=== PATIENT | male | born 1935 | race Caucasian/White ===

== ENCOUNTER 2018-03-10 19:04 | Emergency (ER) | payer MEDICARE, OTHER, MEDICAID ==
[~2018-03-10] VITALS: Ht 193 cm; Wt 95.3 kg
[~2018-03-10 19:04] MED LIST: Aggrenox; CALC-250 PO; DNPZ10T; DOCU50LI PO; DXCC100C PO; GLMP4T; HYOS0.1283 SL; INSN1U SQ; INSU100V5 SQ; IRON18TA PO; MAG30ORA2 PO; MAGN400O7 PO; MEMA10TA; MTF500T; NFMET1000; OMG1KC; PARO10TA21; POLY119P5 PO; PREG150C; SAW1CAPS PO; SERT50TA9 PO; SIME40DR51 PO; SIMV40TA2; TRAM50TA2 PO
[2018-03-10] MEDS ORDERED: ACETAMINOPHEN 500 MG TAB (TYLENOL) PO STA (19:11)
[2018-03-10] MEDS ORDERED: NS IV 1000 ML 1,000 ML IV ONE (19:11)
[2018-03-10 19:21] LABS: BASOPHILS % (AUTO) 0 % (0-10); EOSINOPHILS % (AUTO) 0 % (0-10); HEMATOCRIT 45 % (40-54); HEMOGLOBIN 14.6 G/DL (13.3-17.7); LYMPHOCYTES # (AUTO) 0.9 X 10^3 (1.0-4.0); LYMPHOCYTES % (AUTO) 9 % (12-44); MEAN CORPUSCULAR HEMOGLOBIN 29 PG (25-34); MEAN CORPUSCULAR HGB CONC 33 G/DL (32-36); MEAN CORPUSCULAR VOLUME 89 FL (80-99); MEAN PLATELET VOLUME 10.8 FL (7.4-10.4); MONOCYTES # (AUTO) 0.8 X 10^3 (0.0-1.0); MONOCYTES % (AUTO) 7 % (0-12); NEUTROPHILS # (AUTO) 9.1 X 10^3 (1.8-7.8); NEUTROPHILS % (AUTO) 84 % (42-75); PLATELET COUNT 167 10^3/uL (130-400); RED BLOOD COUNT 5.06 10^6/uL (4.35-5.85); RED CELL DISTRIBUTION WIDTH 14.5 % (10.0-14.5); WHITE BLOOD COUNT 10.8 10^3/uL (4.3-11.0)
--- NOTE | 2018-03-10 19:28 | ED General ---
General Stated Complaint: LETHARGIC Source of Information: EMS, Assisted Records Exam Limitations: Other (PT WITH DEMENTIA AND HAS HAD PRIOR CVA AND IS MINIMALLY VERBAL AND HAS CONFUSED SPEECH NORMALLY, ) History of Present Illness Date Seen by Provider: Mar 10, 2018 Time Seen by Provider: 19:06 Initial Comments PT ARRIVES VIA EMS FROM [facility]. EMS REPORT THAT THEY WERE CALLED BECAUSE PT HAS BEEN LETHARGIC, HIS FACE IS "DROOPING" ( EMS DID NOT APPRECIATE THAT, AND NO EVIDENCE OF FACIAL DROOP ON ARRIVAL TO ER ) AND HIS "VOICE HAD CHANGED" ( AGAIN PT IS ESSENTIALLY NON-VERBAL /MINIMALLY VERBAL AND SPEECH IS CONFUSED, NORMALLY) PT HAS HISTORY OF DEMENTIA, PRIOR CVA/INTRACRANIAL HEMORRHAGE WITH RIGHT SIDE PARALYSIS, DYSPHAGIA, APHASIA. EMS NOTED FEVER OF 100 ON THEIR ASSESSMENT. EMS NOTED O2 SAT OF 90-92% ON ROOM AIR--UP TO MID 90'S ON 2L/NC WAS REPORTED TO EMS BY [facility] STAFF THAT PT CAN NORMALLY POINT TO PEOPLE, BUT HAS NOT BEEN DOING THAT IS UNCLEAR WHEN THESE SYMPTOMS BEGAN. 1943--GRAND DAUGHTER NOW IN ROOM, STATES NORMALLY HE IS MORE ANIMATED AND MORE CONVERSIVE--SHE STATES HE APPEARS VERY TIRED, AND STATES NORMALLY HE HAS A RIGHT SIDED FACIAL DROOP BUT APPEARS MORE DROOPY THAN USUAL DAUGHTER STATES THAT LATELY HE HAS BEEN "CHEEKING" HIS FOOD AND THEY HAVE BEEN WORKING ON THIS ISSUE AT THE [facility]. SHE REPORTS THAT HE DOES HAVE UTI'S ON OCCASION PT IS DNR/DNI PCP: DR. LION Allergies and Home Medications Allergies Coded Allergies: No Known Drug Allergies (Verified , 07/12/07) Home Medications Cefdinir 300 Mg Capsule, 300 MG PO BID Prescribed by: KYLER ARROYO on 03/10/18 2044 Hyoscyamine Sulfate 0.125 Mg Tab.subl, 1-2 TAB SL Q4H Prescribed by: KYLER ARROYO on 02/16/15 1129 Mag Hydrox/Al Hydrox/Simeth 30 Ml Oral.susp, Unknown Dose PO QID PRN for INDIGESTION, (Reported) Polyethylene Glycol 3350 119 Gm Powder, 17 GM PO BID PRN for CONSTIPATION Prescribed by: JAYASHREE DICKERSON on 01/07/15 2225 Tramadol HCl 50 Mg Tablet, 1 TAB PO TID PRN for PAIN, (Reported) Patient Home Medication List Home Medication List Reviewed: Yes Review of Systems Review of Systems Constitutional: see HPI, weakness EENTM: see HPI Respiratory: no symptoms reported; No cough, No short of breath Cardiovascular: no symptoms reported Gastrointestinal: no symptoms reported Genitourinary: no symptoms reported Musculoskeletal: no symptoms reported Skin: no symptoms reported Psychiatric/Neurological: Pre-Existing Deficit (RIGHT SIDE PARALYSIS WITH RIGHT FACIAL DROOP, APHASIA AND DYSPHAGIA), Weakness (GENERALIZED WEAKNESS) Hematologic/Lymphatic: No Symptoms Reported Immunological/Allergic: no symptoms reported Past Lbarped-Bsionr-Ededkk Hx Patient Social History Recent Foreign Travel: No Contact w/Someone Who Travel: No Seasonal Allergies Seasonal Allergies: No Past Medical History Tonsillectomy High Cholesterol, Hypertension Dementia, Neuropathy, Stroke Reproductive Disorders: No Sexually Transmitted Disease: No Chronic Constipation Diabetes, Insulin dep Anxiety, Depression Adverse Reaction/Blood Tranf: No Physical Exam Vital Signs Vital Signs - First Documented 03/10/18 03/10/18 19:10 21:24 Temp 99.2 Pulse 83 Resp 19 B/P (MAP) 139/101 (114) Pulse Ox 98 O2 Delivery Nasal Cannula O2 Flow Rate 2.00 FiO2 96 Capillary Refill : Height, Weight, BMI Height: 6'10" Weight: 200lbs. oz. [id number]; BMI Method:Estimated General Appearance: Other (PT SAYING " OW" AND "GOD DAMN" ON IV STICKS AND CATHETER INSERTION AND SPEECH IS NOT SLURRED. PT SLIGHTLY LETHARGIC. ) HEENT: PERRL/EOMI, Other (MILD RIGHT FACIAL DROOP) Neck: Non Tender Respiratory: Normal Breath Sounds Cardiovascular: Regular Rate, Rhythm, No Edema Neurologic/Psychiatric: Alert (BUT SLIGHTLY LETHARGIC. ), Other (RIGHT SIDED PARALYSIS) Skin: Normal Color, Warm/Dry Focused Exam Lactate Level 03/10/18 19:11: Lactic Acid Level 2.50*H 03/10/18 21:20: Lactic Acid Level 2.00 Lactic Acid Level Progress/Results/Core Measures Suspected Sepsis SIRS Temperature: Pulse: Respiratory Rate: Laboratory Tests 03/10/18 19:11: White Blood Count 10.8 Blood Pressure / Mean: 03/10/18 19:11: Lactic Acid Level 2.50*H 03/10/18 21:20: Lactic Acid Level 2.00 Laboratory Tests 03/10/18 19:11: Creatinine 1.22, INR Comment 1.0, Platelet Count 167, Total Bilirubin 0.7 Results/Orders Lab Results Laboratory Tests Test 03/10/18 19:11 03/10/18 19:18 03/10/18 19:30 03/10/18 21:20 Range/Units White Blood Count 10.8 4.3-11.0 10^3/uL Red Blood Count 5.06 4.35-5.85 10^6/uL Hemoglobin 14.6 13.3-17.7 G/DL Hematocrit 45 40-54 % Mean Corpuscular Volume 89 80-99 FL Mean Corpuscular Hemoglobin 29 25-34 PG Mean Corpuscular Hemoglobin Concent 33 32-36 G/DL Red Cell Distribution Width 14.5 10.0-14.5 % Platelet Count 167 130-400 10^3/uL Mean Platelet Volume 10.8 H 7.4-10.4 FL Neutrophils (%) (Auto) 84 H 42-75 % Lymphocytes (%) (Auto) 9 L 12-44 % Monocytes (%) (Auto) 7 0-12 % Eosinophils (%) (Auto) 0 0-10 % Basophils (%) (Auto) 0 0-10 % Neutrophils # (Auto) 9.1 H 1.8-7.8 X 10^3 Lymphocytes # (Auto) 0.9 L 1.0-4.0 X 10^3 Monocytes # (Auto) 0.8 0.0-1.0 X 10^3 Eosinophils # (Auto) 0.0 0.0-0.3 10^3/uL Basophils # (Auto) 0.0 0.0-0.1 10^3/uL Prothrombin Time 13.0 12.2-14.7 SEC INR Comment 1.0 0.8-1.4 Activated Partial Thromboplast Time 30 24-35 SEC Sodium Level 141 135-145 MMOL/L Potassium Level 3.8 3.6-5.0 MMOL/L Chloride Level 100 98-107 MMOL/L Carbon Dioxide Level 30 21-32 MMOL/L Anion Gap 11 5-14 MMOL/L Blood Urea Nitrogen 20 H 7-18 MG/DL Creatinine 1.22 0.60-1.30 MG/DL Estimat Glomerular Filtration Rate 57 BUN/Creatinine Ratio 16 Glucose Level 213 H 70-105 MG/DL Lactic Acid Level 2.50 *H 2.00 0.50-2.00 MMOL/L Calcium Level 9.7 8.5-10.1 MG/DL Corrected Calcium 9.7 8.5-10.1 MG/DL Magnesium Level 2.1 1.8-2.4 MG/DL Total Bilirubin 0.7 0.1-1.0 MG/DL Aspartate Amino Transf (AST/SGOT) 12 5-34 U/L Alanine Aminotransferase (ALT/SGPT) 19 0-55 U/L Alkaline Phosphatase 64 40-136 U/L Troponin I < 0.30 <0.30 NG/ML B-Type Natriuretic Peptide 20.3 <100.0 PG/ML Total Protein 7.0 6.4-8.2 GM/DL Albumin 4.0 3.2-4.5 GM/DL Amylase Level 50 25-125 U/L Glucometer 213 H 70-110 MG/DL Urine Color YELLOW Urine Clarity SLIGHTLY CLOUDY Urine pH 5 5-9 Urine Specific Casey 1.025 H 1.016-1.022 Urine Protein 1+ H NEGATIVE Urine Glucose (UA) 2+ H NEGATIVE Urine Ketones 1+ H NEGATIVE Urine Nitrite NEGATIVE NEGATIVE Urine Bilirubin NEGATIVE NEGATIVE Urine Urobilinogen NORMAL NORMAL MG/DL Urine Leukocyte Esterase 1+ H NEGATIVE Urine RBC (Auto) 2+ H NEGATIVE Urine RBC 5-10 H /HPF Urine WBC 0-2 /HPF Urine Squamous Epithelial Cells 0-2 /HPF Urine Crystals NONE /LPF Urine Bacteria NONE /HPF Urine Casts NONE /LPF Urine Mucus NEGATIVE /LPF Urine Culture Indicated NO Micro Results Microbiology 03/10/18 Influenza Types A,B Antigen (CARIDAD) - Final, Complete My Orders Orders - KYLER ARROYO DO Accucheck Stat ONCE (03/10/18 19:11) Saline Lock/Iv-Start (03/10/18 19:11) Ekg Tracing (03/10/18 19:11) Catheter(Urinary) Insert & Ass 03,15 (03/10/18 19:11) O2 (03/10/18 19:11) Monitor-Rhythm Ecg Trace Only (03/10/18 19:11) Amylase (03/10/18 19:11) BNP (03/10/18 19:11) Cbc With Automated Diff (03/10/18 19:11) Comprehensive Metabolic Panel (03/10/18 19:11) Lactic Acid Analyzer (03/10/18 19:11) Magnesium (03/10/18 19:11) Protime With Inr (03/10/18 19:11) Partial Thromboplastin Time (03/10/18 19:11) Troponin I (03/10/18 19:11) Ua Culture If Indicated (03/10/18 19:11) Blood Culture (03/10/18 19:11) Influenza A And B Antigens (03/10/18 19:11) Chest 1 View, Ap/Pa Only (03/10/18 19:11) Saline Lock/Iv-Start (03/10/18 19:11) Ns Iv 1000 Ml (Sodium Chloride 0.9%) (03/10/18 19:11) Acetaminophen Tablet (Tylenol Tablet) (03/10/18 19:11) Ct Head Wo-R/O Stroke (03/10/18 19:48) Ceftriaxone For Iv Use (Rocephin For I (03/10/18 20:45) Rx-Oseltamivir Caps (Rx-Tamiflu Caps) (03/10/18 21:11) Medications Given in ED Current Medications Medications Dose Ordered Sig/Syl Route Start Time Stop Time Status Last Admin Dose Admin Ceftriaxone Sodium 1000 mg/ Sodium Chloride 60 ml @ 100 mls/hr ONCE ONCE IV 03/10/18 20:45 03/10/18 21:20 DC 03/10/18 21:15 100 MLS/HR Sodium Chloride 1,000 ml @ 0 mls/hr Q0M ONCE IV 03/10/18 19:11 03/10/18 19:15 DC 03/10/18 19:37 999 MLS/HR Vital Signs/I&O 03/10/18 03/10/18 03/10/18 03/10/18 19:10 19:10 19:37 20:30 Temp 99.2 99.2 98.9 Pulse 83 83 Resp 19 19 B/P (MAP) 139/101 (114) 123/89 O2 Delivery Nasal Cannula Nasal Cannula O2 Flow Rate 2.00 2.00 FiO2 96 03/10/18 21:24 Temp 98.9 Pulse 83 Resp 19 B/P (MAP) 129/72 (91) Pulse Ox 98 O2 Delivery Nasal Cannula O2 Flow Rate 2.00 Capillary Refill : Progress Note : Progress Note 1944--WHEN GRAND DAUGHTER ARRIVES IN ROOM, PT IS FOLLOWING SOME COMMANDS AND ANSWERING YES/NO QUESTIONS SEEMINGLY APPROPRIATELY-MOSTLY BY NODDING OR SHAKING HEAD YES/NO. AFTER FLUIDS, PT IS MORE ANIMATED, LESS LETHARGIC AND IS ANSWERING QUESTIONS WITH YES/NO INSTEAD OF NODDING OR SHAKING HEAD YES/NO. PT FOLLOWING COMMANDS BETTER. DURING PT'S ER STAY, ANOTHER RESIDENT FROM SAME [facility] HAS JUST TESTED + FOR INFLUENZA B--WILL TREAT PT PROPHYLACTICALLY WITH TAMIFLU AT DISMISSAL, [facility] STAFF NOW REPORT THAT THERE ARE ALREADY A COUPLE OF OTHER RESIDENTS THERE THAT HAVE INFLUENZA. ( DID NOT MENTION THIS TO EMS OR PRIOR TO PT'S ARRIVAL ) PT DID HAVE GROSS HEMATURIA AFTER LUCIA PLACEMENT BY RN, AND WAS REPORTED THAT NURSE DID HAVE SOME DIFFICULTY WITH PLACEMENT, BUT THEN HAD RETURN OF CLEAR URINE INITIALLY, THEN WOULD NOT DRAIN, THEN LATER WHEN CATHETER WAS REPOSITIONED AND HAD RETURN OF A LARGE AMOUNT OF CLEAR URINE, THEN LATER , PT WAS NOTED TO HAVE GROSS HEMATURIA, FOLLOWED BY CLEARING OF URINE. CATHETER WAS IRRIGATED WITH GOOD RETURN OF CLEARING URINE. ECG Initial ECG Impression Date: Mar 10, 2018 Initial ECG Impression Time: 19:14 Initial ECG Rate: 87 Initial ECG Rhythm: Normal Sinus Initial ECG Impression: Normal Departure Impression Primary Impression: EXPOSURE TO INFLUENZA B Additional Impressions: Dehydration UTI (urinary tract infection) Generalized weakness HX OF CVA WITH RIGHT SIDED WEAKNESS, APHASIA AND DYSPHAGIA Dementia IDDM (insulin dependent diabetes mellitus) Febrile illness Disposition: 03 XFER SNF Condition: Improved Departure-Patient Inst. Referrals: YVES LION MD Patient Instructions: Dehydration, Adult (DC), Flu, Adult (DC), Urinary Tract Infection, Adult (DC) Add. Discharge Instructions: TAKE TAMIFLU 75 MG TWICE A DAY X 5 DAYS ENCOURAGE FLUIDS TYLENOL NEEDED FOR PAIN OR FEVER CONTINUE YOUR CURRENT MEDICATIONS PRESCRIBED FOLLOW UP WITH DR. LION IN 2-3 DAYS FOR FURTHER CARE, RETURN TO ER IF WORSE Scripts Cefdinir (Cefdinir) 300 Mg Capsule 300 MG PO BID for FOR INFECTION, #20 CAP Prov: KYLER ARROYO DO 03/10/18 KYLER ARROYO DO Mar 10, 2018 19:28
[2018-03-10 19:40] LABS: BILIRUBIN,URINE NEGATIVE (NEGATIVE); CLARITY,URINE SLIGHTLY CLOUDY; COLOR,URINE YELLOW; GLUCOSE, URINE (UA) 2+ (NEGATIVE); KETONES,URINE 1+ (NEGATIVE); LEUKOCYTE ESTERASE ,URINE 1+ (NEGATIVE); NITRITE,URINE NEGATIVE (NEGATIVE); PH,URINE 5 (5-9); PROTEIN,URINE 1+ (NEGATIVE); UROBILINOGEN,URINE NORMAL (NORMAL)
[2018-03-10 19:41] LABS: ALANINE AMINOTRANSFERASE 19 U/L (0-55); ALKALINE PHOSPHATASE 64 U/L (40-136); AMYLASE 50 U/L (25-125); BILIRUBIN,TOTAL 0.7 MG/DL (0.1-1.0); BUN/CREATININE RATIO 16; CALCIUM 9.7 MG/DL (8.5-10.1); CARBON DIOXIDE 30 MMOL/L (21-32); CHLORIDE 100 MMOL/L (98-107); CREATININE SERUM 1.22 MG/DL (0.60-1.30); GFR ESTIMATED 57; GLUCOSE 213 MG/DL (70-105); MAGNESIUM 2.1 MG/DL (1.8-2.4); POTASSIUM 3.8 MMOL/L (3.6-5.0); SODIUM 141 MMOL/L (135-145)
--- NOTE | 2018-03-10 19:59 | Diagnostic Imaging Report ---
INDICATION: Chest complaints, unable to verbalize. EXAMINATION: Chest, 03/10/2018. COMPARISON: 03/31/2014. FINDINGS: There is linear atelectasis at the right lung base with some scarring also noted. There is a rounded density in the right infrahilar region of uncertain etiology however present on previous imaging. Based on prior CT findings it is most likely prominent the vessels however this is slightly more pronounced than on chest x-ray obtained during abdominal series of 02/16/2015 and followup is recommended. Remaining lungs demonstrate chronic interstitial changes. No effusions or pneumothorax. IMPRESSION: Prominent density right infrahilar region, see above discussion and recommendations. The remaining chest is unremarkable for an acute process. Dictated by: Dictated on workstation # [id number]
[2018-03-10 20:03] LABS: SQUAMOUS EPITHELIAL CELL,UR 0-2 /HPF; WBC,URINE 0-2 /HPF
--- NOTE | 2018-03-10 20:26 | Diagnostic Imaging Report ---
INDICATION: Lethargic, right-sided facial drooping, history of right-sided stroke. EXAMINATION: CT brain without contrast, 03/10/2018. COMPARISON: 03/31/2014. FINDINGS: A large area of encephalomalacia is seen throughout the left parietal lobe and portions of the frontal lobe as well, consistent with an area of hemorrhage seen on previous CT. Secondary expected dilatation of the left ventricle is noted. Other chronic ischemic changes are seen scattered throughout the deep white matter and periventricular distribution. There is no evidence for acute hemorrhage or infarct. No mass, mass effect or midline shift. No hydrocephalus. The ventricles are prominent, however, likely due to surrounding atrophy and the previous infarct. The osseous structures and sinuses demonstrate no acute abnormalities. IMPRESSION: Chronic findings, as described. No acute process appreciated. Dictated by: Dictated on workstation # [id number]
[2018-03-10] MEDS ORDERED: CEFD300C3 PO (20:44)
[2018-03-10] MEDS ORDERED: cefTRIAXone FOR IV USE 1,000 MG in NS (IVPB) 50 ML IV ONE (20:45)
[2018-03-10] MEDS ORDERED: RX-OSELTAMIVIR 75 MG (TAMIFLU) BOX OF 10 PO STA (21:11)
[2018-03-10 21:24] VITALS: BP 129/72
== END 2018-03-10 22:41 ==
LOC: EDUNIT# 19:04 → ER 19:07
DX: E86.0 Dehydration (principal); N39.0 Urinary tract infection, site not specified; R53.1 Weakness; F03.90 Unspecified dementia, unspecified severity, without behavioral disturbance, psychotic disturbance, mood disturbance, and anxiety; I10 Essential (primary) hypertension; F41.9 Anxiety disorder, unspecified; F32.9 Major depressive disorder, single episode, unspecified; E11.40 Type 2 diabetes mellitus with diabetic neuropathy, unspecified; E78.00 Pure hypercholesterolemia, unspecified; Z86.73 Personal history of transient ischemic attack (TIA), and cerebral infarction without residual deficits; Z90.89 Acquired absence of other organs; Z87.19 Personal history of other diseases of the digestive system; Z20.828 Contact with and (suspected) exposure to other viral communicable diseases
CPT/HCPCS: 36415; 70450; 71045; 80053; 81000; 82150; 82962; 83605; 83735; 83880; 84484; 85025; 85610; 85730; 87040; 87804; 93005; 93041

== ENCOUNTER 2018-04-21 20:32 | Emergency (ER) | payer MEDICARE, OTHER, MEDICAID ==
[~2018-04-21] VITALS: Ht 193 cm; Wt 95.3 kg
[~2018-04-21 20:32] MED LIST changes: +CEFD300C3 PO
--- NOTE | 2018-04-21 20:53 | ED Neurological Problem ---
General Chief Complaint: Neuro-Stroke Like Symptoms Stated Complaint: CHANGE OF CONDITON Source: patient Exam Limitations: no limitations History of Present Illness Date Seen by Provider: Apr 21, 2018 Time Seen by Provider: 20:45 Initial Comments Patient presents to ER by EMS with chief complaint of a per nursing staff that he was walking and ambulating independently earlier today but since at least 2: 00 in the afternoon he has been having right sided weakness so they tried feeding him but he just little food drool out of his mouth. When EMS arrived blood sugar was 171 and they started an IV in him and transported him here. Patient is known to have baseline nonverbal or minimally verbal with confused speech but will shake his head yes or no answer questions and follow commands appropriately. He does have expressive aphasia but is able to say his name today. This is his baseline. 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 Historically patient's also had multiple UTIs for family. The patient is not on Plavix or any blood thinners. Staff report the patient had a large bowel movement earlier this morning. Allergies and Home Medications Allergies Coded Allergies: No Known Drug Allergies (Verified , 07/12/07) Home Medications Cefdinir 300 Mg Capsule, 300 MG PO BID Prescribed by: KYLER ARROYO on 03/10/18 2044 Hyoscyamine Sulfate 0.125 Mg Tab.subl, 1-2 TAB SL Q4H Prescribed by: KYLER ARROYO on 02/16/15 1129 Mag Hydrox/Al Hydrox/Simeth 30 Ml Oral.susp, Unknown Dose PO QID PRN for INDIGESTION, (Reported) Polyethylene Glycol 3350 119 Gm Powder, 17 GM PO BID PRN for CONSTIPATION Prescribed by: JAYASHREE DICKERSON on 01/07/15 2225 Tramadol HCl 50 Mg Tablet, 1 TAB PO TID PRN for PAIN, (Reported) Patient Home Medication List Home Medication List Reviewed: Yes Review of Systems Review of Systems Constitutional: see HPI (Patient has a very limited review of systems secondary to nonverbal baseline and history of dementia) Past Zqdhrtb-Fldzor-Fqqvpb Hx Patient Social History Recent Foreign Travel: No Contact w/Someone Who Travel: No Recent Hopitalizations: No Immunizations Up To Date Tetanus Booster (TDap): Unknown Seasonal Allergies Seasonal Allergies: Yes Past Medical History Surgeries: Yes Tonsillectomy Respiratory: No Cardiac: Yes High Cholesterol, Hypertension Neurological: Yes Dementia, Neuropathy, Stroke Reproductive Disorders: No Sexually Transmitted Disease: No Genitourinary: Yes Bladder Infection Gastrointestinal: Yes Chronic Constipation Musculoskeletal: Yes (GERNERALIZED WEAKNESS AND PAIN ) Endocrine: Yes Diabetes, Insulin dep HEENT: Yes Dysphagia Cancer: No Psychosocial: Yes Anxiety, Depression Integumentary: No Blood Disorders: No Adverse Reaction/Blood Tranf: No Physical Exam Vital Signs Vital Signs - First Documented 04/21/18 20:45 Temp 97.9 Pulse 85 Resp 16 B/P (MAP) 170/94 (119) Pulse Ox 93 O2 Delivery Room Air Capillary Refill : Height, Weight, BMI Height: 6'4.00" Weight: 210lbs. 0.8oz. [id number]; 30.13 BMI Method:Estimated General Appearance: no apparent distress, other (Mildly disheveled) HEENT: PERRL/EOMI, normal ENT inspection, TMs normal, pharynx normal, other ( No dentures) Neck: non-tender, full range of motion, supple, normal inspection Respiratory: chest non-tender, lungs clear, normal breath sounds, no respiratory distress, no accessory muscle use Cardiovascular: normal peripheral pulses, regular rate, rhythm, no edema Peripheral Pulses: 2+ Radial Pulses (R), 2+ Radial Pulses (L) Gastrointestinal: normal bowel sounds, soft, distended (Mild); No guarding, No rebound; tenderness Extremities: normal range of motion, non-tender, normal capillary refill Neurologic/Psychiatric: alert, normal mood/affect, other (Oriented to person) Crainal Nerves: PERRL; No facial asymmetry, No facial droop Coordination/Gait: No normal gait Stroke Stroke Thrombolytic Exclusion History of CVA: Yes Severe Hypertension: No Subarachnoid Hemorrhage: Yes Intracranial Neoplasm/Aneurysm: No Puncture of Non-Compressible V: No Recent CPR: No Diabetic Hemorrhagic Retinopat: No Organ Biopsy: No Recent Obstetric Delivery: No Significant Hepatic Dysfunctio: No NIH Stoke Scale >22: Yes Improving Symptoms: No Progress/Results/Core Measures Results/Orders Lab Results Laboratory Tests Test 04/21/18 20:49 04/21/18 20:50 04/21/18 21:35 Range/Units Glucometer 160 H 70-110 MG/DL White Blood Count 12.7 H 4.3-11.0 10^3/uL Red Blood Count 5.24 4.35-5.85 10^6/uL Hemoglobin 15.4 13.3-17.7 G/DL Hematocrit 47 40-54 % Mean Corpuscular Volume 90 80-99 FL Mean Corpuscular Hemoglobin 29 25-34 PG Mean Corpuscular Hemoglobin Concent 33 32-36 G/DL Red Cell Distribution Width 15.3 H 10.0-14.5 % Platelet Count 198 130-400 10^3/uL Mean Platelet Volume 11.0 H 7.4-10.4 FL Neutrophils (%) (Auto) 82 H 42-75 % Lymphocytes (%) (Auto) 10 L 12-44 % Monocytes (%) (Auto) 7 0-12 % Eosinophils (%) (Auto) 0 0-10 % Basophils (%) (Auto) 0 0-10 % Neutrophils # (Auto) 10.4 H 1.8-7.8 X 10^3 Lymphocytes # (Auto) 1.3 1.0-4.0 X 10^3 Monocytes # (Auto) 0.9 0.0-1.0 X 10^3 Eosinophils # (Auto) 0.0 0.0-0.3 10^3/uL Basophils # (Auto) 0.0 0.0-0.1 10^3/uL Prothrombin Time 13.1 12.2-14.7 SEC INR Comment 1.0 0.8-1.4 Activated Partial Thromboplast Time 25 24-35 SEC D-Dimer 0.47 0.00-0.49 UG/ML Sodium Level 157 H 135-145 MMOL/L Potassium Level 3.5 L 3.6-5.0 MMOL/L Chloride Level 113 H 98-107 MMOL/L Carbon Dioxide Level 25 21-32 MMOL/L Anion Gap 19 H 5-14 MMOL/L Blood Urea Nitrogen 42 H 7-18 MG/DL Creatinine 1.30 0.60-1.30 MG/DL Estimat Glomerular Filtration Rate 53 BUN/Creatinine Ratio 32 Glucose Level 177 H 70-105 MG/DL Calcium Level 10.1 8.5-10.1 MG/DL Corrected Calcium 9.9 8.5-10.1 MG/DL Total Bilirubin 0.4 0.1-1.0 MG/DL Aspartate Amino Transf (AST/SGOT) 10 5-34 U/L Alanine Aminotransferase (ALT/SGPT) 15 0-55 U/L Alkaline Phosphatase 58 40-136 U/L Troponin I < 0.30 <0.30 NG/ML Total Protein 7.3 6.4-8.2 GM/DL Albumin 4.2 3.2-4.5 GM/DL Lipase 44 8-78 U/L Urine Color YELLOW Urine Clarity SLIGHTLY CLOUDY Urine pH 5 5-9 Urine Specific [place] 1.025 H 1.016-1.022 Urine Protein 1+ H NEGATIVE Urine Glucose (UA) 1+ H NEGATIVE Urine Ketones NEGATIVE NEGATIVE Urine Nitrite NEGATIVE NEGATIVE Urine Bilirubin 1+ H NEGATIVE Urine Urobilinogen 1 NORMAL MG/DL Urine Leukocyte Esterase 1+ H NEGATIVE Urine RBC (Auto) 1+ H NEGATIVE Urine RBC 0-2 /HPF Urine WBC 0-2 /HPF Urine Crystals NONE /LPF Urine Bacteria NONE /HPF Urine Casts NONE /LPF Urine Mucus NEGATIVE /LPF Urine Culture Indicated NO My Orders Orders - ALBARO SOLOMON Pantoprazole Injection (Protonix Injecti (04/21/18 21:00) Lipase (04/21/18 20:50) Abdomen/Kub 1view (04/21/18 20:58) Ns Iv 1000 Ml (Sodium Chloride 0.9%) (04/21/18 21:05) Straight Cath For Spec.-Adult (04/21/18 21:28) Medications Given in ED Current Medications Medications Dose Ordered Sig/Syl Route Start Time Stop Time Status Last Admin Dose Admin Pantoprazole 40 mg ONCE ONCE IV 04/21/18 21:00 04/21/18 21:01 DC 04/21/18 21:22 40 MG Vital Signs/I&O 04/21/18 20:45 Temp 97.9 Pulse 85 Resp 16 B/P (MAP) 170/94 (119) Pulse Ox 93 O2 Delivery Room Air Progress Progress Note : Time: 21:38 Progress Note Reviewed the labs and chest x-ray with the granddaughter/ power of senior attorney and the patient does appear to be at baseline per previous records as well as per the power of senior attorney/granddaughter. I would not pursue any neurologic testing further than this because he does not have any new neurologic findings. He does not walk at baseline. We will look for evidence of bowel constipation since he does look a little distended and had a little tenderness on the left side of his belly. Initial ECG Impression Date: Apr 21, 2018 Initial ECG Impression Time: 20:51 Initial ECG Rate: 87 Initial ECG Rhythm: Normal Sinus Initial ECG Intervals: Normal Initial ECG Impression: Normal, Nonspecific Changes Initial ECG Comparisson: Unchanged Comment No ST Elevation or depression. Diagnostic Imaging Diagonstic Imaging: CT (Noncontrast) Plain Films/CT/US/NM/MRI: head Comments [facility] [place], [place] NAME: AFUA BRYAN [facility] REC#: [id number] PT STATUS: REG ER : 1935 PHYSICIAN: ULYSSES DENNIS APRN ADMIT DATE: 04/21/18/ER Draft Date of Exam:04/21/18 CT HEAD WO-R/O STROKE PROCEDURE: CT head without contrast, r/o stroke. TECHNIQUE: Multiple contiguous axial images were obtained through the brain without the use of intravenous contrast. INDICATION: Altered mental status, right-sided weakness, nonverbal, confused. CORRELATION STUDY: 03/10/2018, 03/31/2014. FINDINGS: Atrophic changes with prominence of the ventricles and sulci again demonstrated. Rather pronounced scattered areas of decreased attenuation, while nonspecific, favor likely changes of small vessel ischemic disease, generally stable. This includes a more focal area of encephalomalacia and left frontal lobe and portions of the temporal lobe. Additional previous lacunar-type infarct, particularly of the left thalamus. Definitive new area of decreased attenuation to suggest edema is not suggested. No intracranial hemorrhage. No midline shift. No suggestion for hyperdense MCA sign with presence of intracranial vascular calcification. Calvarium unchanged. Paranasal sinuses and mastoid air cells are clear. IMPRESSION: Generally stable noncontrast CT imaging of the head. There is generalized atrophic changes with likely changes that reflect small vessel ischemic disease, rather pronounced in severity. Additionally, more focal area of encephalomalacia from infarct in left frontal and temporal regions. Subtle areas of edema would be difficult to exclude given the rather pronounced chronic changes. Followup imaging would be recommended if symptoms continue and/or persist. Dictated on workstation # [id number] Dict: 04/21/182048 Trans: 04/21/182058 [facility] [id number] Interpreted by: SARWAT MARTIN DO Electronically signed by: Reviewed: Reviewed by Nc Diagonstic Imaging: Xray Plain Films/CT/US/NM/MRI: chest (1v) Comments [facility] [place] [place] [place] NAME: AFUA BRYAN [facility] REC#: [id number] PT STATUS: REG ER : 1935 PHYSICIAN: ULYSSES DENNIS APRN ADMIT DATE: 04/21/18/ER Draft Date of Exam:04/21/18 CHEST 1 VIEW, AP/PA ONLY INDICATION: Altered mental status with right-sided weakness. Nonverbal, confused. TECHNIQUE: Single view chest 8:44 PM. CORRELATION STUDY: 03/10/2018 FINDINGS: Overall limited depth of inspiration. This results in some crowding and atelectasis at the lung bases. No definitive infiltrate. The density in the right infrahilar region appears likely relatively stable but somewhat obscured. Heart size and mediastinum are stable. There is presence of vascular calcification in the soft tissues of the neck likely carotid artery in origin. IMPRESSION: 1. Suboptimal depth of inspiration with crowding of the lung bases and bibasilar atelectasis. Dictated on workstation # [id number] Dict: 04/21/182047 Trans: 04/21/182053 [facility] [id number] Interpreted by: SARWAT MARTIN DO Electronically signed by: Reviewed: Reviewed by Nc Diagonstic Imaging: Xray Plain Films/CT/US/NM/MRI: abdomen (KUB 1 view) Comments NAME: AFUA BRYAN [facility] REC#: [id number] PHYSICIAN: ALBARO SOLOMON MD CC: SARWAT MARTIN DO; ALBARO SOLOMON Page 1 of 1 RADIOLOGY REPORT [facility] [place] [place] CC: SARWAT MARTIN DO; ALBARO SOLOMON Page 1 of 1 RADIOLOGY REPORT NAME: AFUA BRYAN [facility] REC#: [id number] PT STATUS: REG ER : 1935 PHYSICIAN: ALBARO SOLOMON MD ADMIT DATE: 04/21/18/ER Signed Date of Exam: 04/21/18 ABDOMEN/KUB 1VIEW INDICATION: Weakness, aphasia. TECHNIQUE: 2 view of the abdomen 9:29 PM CORRELATION STUDY: None FINDINGS: Moderate severity fecal retention is noted. Stool throughout the colon including at the level of the rectum. No suggestion for obstruction. Few gas-filled loops of small bowel are present, may reflect mild ileus. Clips within the left upper quadrant of the abdomen. There is diffuse bony demineralization present. IMPRESSION: 1. Mild/moderate severity fecal retention. No findings to suggest high degree of bowel obstruction. Mild ileus pattern not excluded. Dictated by: Dictated on workstation # [id number] Dict: 04/21/182145 Trans: 04/21/182206 Interpreted by: SARWAT MARTIN DO Electronically signed by: SARWAT MARTIN DO 04/21/182206 Reviewed: Reviewed by Me Departure Impression Primary Impression: Constipation Qualified Codes: K59.00 - Constipation, unspecified Additional Impression: History of hemorrhagic stroke with residual hemiparesis Disposition: 01 HOME, SELF-CARE Condition: Stable Departure-Patient Inst. Decision time for Depature: 22:19 Referrals: YVES LION MD (PCP/Family) Primary Care Physician Patient Instructions: Constipation, Adult (DC) Add. Discharge Instructions: Encourage fluid intake and add MiraLAX once daily for the next 3 days. Follow- up with primary care as necessary. All discharge instructions reviewed with patient and/or family. Voiced understanding. ALBARO SOLOMON Apr 21, 2018 20:53
[2018-04-21 20:57] LABS: BASOPHILS % (AUTO) 0 % (0-10); EOSINOPHILS % (AUTO) 0 % (0-10); HEMATOCRIT 47 % (40-54); HEMOGLOBIN 15.4 G/DL (13.3-17.7); LYMPHOCYTES # (AUTO) 1.3 X 10^3 (1.0-4.0); LYMPHOCYTES % (AUTO) 10 % (12-44); MEAN CORPUSCULAR HEMOGLOBIN 29 PG (25-34); MEAN CORPUSCULAR HGB CONC 33 G/DL (32-36); MEAN CORPUSCULAR VOLUME 90 FL (80-99); MONOCYTES # (AUTO) 0.9 X 10^3 (0.0-1.0); MONOCYTES % (AUTO) 7 % (0-12); NEUTROPHILS # (AUTO) 10.4 X 10^3 (1.8-7.8); NEUTROPHILS % (AUTO) 82 % (42-75); PLATELET COUNT 198 10^3/uL (130-400); RED BLOOD COUNT 5.24 10^6/uL (4.35-5.85); RED CELL DISTRIBUTION WIDTH 15.3 % (10.0-14.5); WHITE BLOOD COUNT 12.7 10^3/uL (4.3-11.0)
--- NOTE | 2018-04-21 20:59 | Diagnostic Imaging Report ---
PROCEDURE: CT head without contrast, r/o stroke. TECHNIQUE: Multiple contiguous axial images were obtained through the brain without the use of intravenous contrast. INDICATION: Altered mental status, right-sided weakness, nonverbal, confused. CORRELATION STUDY: 03/10/2018, 03/31/2014. FINDINGS: Atrophic changes with prominence of the ventricles and sulci again demonstrated. Rather pronounced scattered areas of decreased attenuation, while nonspecific, favor likely changes of small vessel ischemic disease, generally stable. This includes a more focal area of encephalomalacia and left frontal lobe and portions of the temporal lobe. Additional previous lacunar-type infarct, particularly of the left thalamus. Definitive new area of decreased attenuation to suggest edema is not suggested. No intracranial hemorrhage. No midline shift. No suggestion for hyperdense MCA sign with presence of intracranial vascular calcification. Calvarium unchanged. Paranasal sinuses and mastoid air cells are clear. IMPRESSION: Generally stable noncontrast CT imaging of the head. There is generalized atrophic changes with likely changes that reflect small vessel ischemic disease, rather pronounced in severity. Additionally, more focal area of encephalomalacia from infarct in left frontal and temporal regions. Subtle areas of edema would be difficult to exclude given the rather pronounced chronic changes. Followup imaging would be recommended if symptoms continue and/or persist. Dictated by: Dictated on workstation # [id number]
[2018-04-21] MEDS ORDERED: PANTOPRAZOLE 40 MG (PROTONIX) VIAL IV ONE (21:00)
[2018-04-21] MEDS ORDERED: NS IV 1000 ML 1,000 ML IV STA (21:05)
[2018-04-21 21:09] LABS: FIBRIN DEGRADATION PRODUCTS 0.47 UG/ML (0.00-0.49); PROTHROMBIN TIME PATIENT 13.1 SEC (12.2-14.7)
[2018-04-21 21:16] LABS: ALANINE AMINOTRANSFERASE 15 U/L (0-55); ALBUMIN 4.2 GM/DL (3.2-4.5); ALKALINE PHOSPHATASE 58 U/L (40-136); BILIRUBIN,TOTAL 0.4 MG/DL (0.1-1.0); BUN/CREATININE RATIO 32; CALCIUM 10.1 MG/DL (8.5-10.1); CARBON DIOXIDE 25 MMOL/L (21-32); CHLORIDE 113 MMOL/L (98-107); GFR ESTIMATED 53; GLUCOSE 177 MG/DL (70-105); LIPASE 44 U/L (8-78); POTASSIUM 3.5 MMOL/L (3.6-5.0); SODIUM 157 MMOL/L (135-145); TOTAL PROTEIN 7.3 GM/DL (6.4-8.2)
[2018-04-21 21:45] LABS: BILIRUBIN,URINE 1+ (NEGATIVE); CLARITY,URINE SLIGHTLY CLOUDY; COLOR,URINE YELLOW; GLUCOSE, URINE (UA) 1+ (NEGATIVE); KETONES,URINE NEGATIVE (NEGATIVE); LEUKOCYTE ESTERASE ,URINE 1+ (NEGATIVE); NITRITE,URINE NEGATIVE (NEGATIVE); PH,URINE 5 (5-9); PROTEIN,URINE 1+ (NEGATIVE); UROBILINOGEN,URINE 1 MG/DL (NORMAL)
[2018-04-21 22:02] LABS: RBC,URINE 0-2 /HPF; WBC,URINE 0-2 /HPF
--- NOTE | 2018-04-21 22:07 | Diagnostic Imaging Report ---
INDICATION: Weakness, aphasia. TECHNIQUE: 2 view of the abdomen 9:29 PM CORRELATION STUDY: None FINDINGS: Moderate severity fecal retention is noted. Stool throughout the colon including at the level of the rectum. No suggestion for obstruction. Few gas-filled loops of small bowel are present, may reflect mild ileus. Clips within the left upper quadrant of the abdomen. There is diffuse bony demineralization present. IMPRESSION: 1. Mild/moderate severity fecal retention. No findings to suggest high degree of bowel obstruction. Mild ileus pattern not excluded. Dictated by: Dictated on workstation # [id number]
[2018-04-21 22:35] VITALS: BP 155/81
== END 2018-04-21 23:32 | disposition home or self-care (01) ==
LOC: EDUNIT# 20:32 → ER 20:33
DX: K59.00 Constipation, unspecified (principal); M62.81 Muscle weakness (generalized); R41.82 Altered mental status, unspecified; F03.90 Unspecified dementia, unspecified severity, without behavioral disturbance, psychotic disturbance, mood disturbance, and anxiety; E78.00 Pure hypercholesterolemia, unspecified; I10 Essential (primary) hypertension; E11.40 Type 2 diabetes mellitus with diabetic neuropathy, unspecified; F41.9 Anxiety disorder, unspecified; F32.9 Major depressive disorder, single episode, unspecified; Z87.19 Personal history of other diseases of the digestive system; Z87.448 Personal history of other diseases of urinary system; Z86.73 Personal history of transient ischemic attack (TIA), and cerebral infarction without residual deficits; Z87.828 Personal history of other (healed) physical injury and trauma; Z87.440 Personal history of urinary (tract) infections; Z90.89 Acquired absence of other organs
CPT/HCPCS: 36415; 51701; 70450; 71045; 74018; 80053; 81000; 82962; 83690; 84484; 85025; 85379; 85610; 85730; 93041

== ENCOUNTER → 2018-06-09 | Outpatient (CLI) | payer MEDICARE, OTHER, MEDICAID ==
[2018-06-09 13:20] LABS: BILIRUBIN,URINE NEGATIVE (NEGATIVE); CLARITY,URINE CLEAR; COLOR,URINE YELLOW; GLUCOSE, URINE (UA) NEGATIVE (NEGATIVE); KETONES,URINE NEGATIVE (NEGATIVE); LEUKOCYTE ESTERASE ,URINE NEGATIVE (NEGATIVE); NITRITE,URINE NEGATIVE (NEGATIVE); PH,URINE 7 (5-9); PROTEIN,URINE NEGATIVE (NEGATIVE); UROBILINOGEN,URINE 4 MG/DL (NORMAL)
[2018-06-09 13:32] LABS: BACTERIA,URINE TRACE /HPF; WBC,URINE RARE /HPF
== END ==
LOC: LABNPT 13:15
PROVIDERS: ATTEND Internal Medicine
DX: N39.0 Urinary tract infection, site not specified (principal)
CPT/HCPCS: 81000